=== PATIENT | male | born 1965 ===

== ENCOUNTER 2016-12-05 18:33 | Emergency (ER) | payer SELFPAY ==
[2016-12-05 18:43] VITALS: BP 129/80; PULSE 67; RESP 20; TEMP 98.5; O2SAT 99
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
--- NOTE | 2016-12-06 15:44 | RAD ---
Chest and left ribs five views History: Pain. Comparison: None available. Findings: Lung bolivar are clear. Heart size within normal limits. No evidence of pneumothorax. No evidence of acute displaced rib fracture. Question minimal cortical irregularity seen at the lateral aspect of the anterior left 7th rib best seen on series 6, image 1, nonspecific. Clinical correlation to site of pain. This was not well appreciated on the additional images. Impression: No evidence of pneumothorax. No evidence of acute displaced rib fracture. Question minimal cortical irregularity seen at the lateral aspect of the anterior left 7th rib best seen on series 6, image 1, nonspecific. Clinical correlation to site of pain. This was not well appreciated on the additional images.
== END 2016-12-05 21:38 | disposition home or self-care (01) ==
LOC: C.ER 18:33
DX: S20.212A Contusion of left front wall of thorax, initial encounter (principal); V18.0XXA Pedal cycle driver injured in noncollision transport accident in nontraffic accident, initial encounter; Y93.55 Activity, bike riding

== ENCOUNTER 2017-10-24 11:17 | Observation (INO) | payer OTHER ==
[2017-10-24] MEDS ORDERED: Sodium Chloride 0.9% 1,000 ML IV ONE (11:43)
[2017-10-24 12:19] LABS: BASO % 0.1 % (0.0-2.0); EOS % 0.6 % (0.0-4.0); HEMOGLOBIN 11.7 g/dL (12.0-18.0); LYMPH # 0.6 K/uL (1.0-4.3); LYMPH % 10.7 % (20.0-40.0); MEAN CELL VOLUME 91.3 fL (80.0-94.0); MEAN CORPUSCULAR HEMOGLOBIN 30.6 pg (27.0-31.0); MEAN CORPUSCULAR HGB CONC 33.5 g/dL (33.0-37.0); MEAN PLATELET VOLUME 9.2 fL (7.2-11.7); MONO # 0.5 K/uL (0.0-0.8); MONO % 9.7 % (0.0-10.0); NEUT # 4.1 K/uL (1.8-7.0); NEUT % 78.9 % (50.0-75.0); RBC 3.83 Mil/uL (4.40-5.90); RED CELL DISTRIBUTION WIDTH 13.6 % (11.5-14.5); WHITE BLOOD COUNT 5.2 K/uL (4.8-10.8)
[2017-10-24 12:57] LABS: ALB/GLOB RATIO 0.9 (1.0-2.1); ALBUMIN 2.2 g/dL (3.5-5.0); ALT/SGPT 29 U/L (21-72); AST/SGOT 21 U/L (17-59); BLOOD UREA NITROGEN 12 mg/dL (9-20); CALCIUM 5.6 mg/dl (8.6-10.4); GFR AFRICAN-AMERICAN > 60; GFR NON-AFRICAN AMERICAN > 60; LIPASE 68 U/L (23-300)
--- NOTE | 2017-10-24 13:11 | C.PDOC ---
History Of Present Illness Patient BIBA for evaluation of weakness, found to be hypotensive in the field ( 84/30). Patient states last night he had a large amount of watery diarrhea, and then had an episode again this morning. Patient then felt very lightheaded and almost passed out; daughter called 911. He denies chest pain, palpitations , SOB, fever, cough, vomiting, melena/hematochezia. Time Seen by Provider: 10/24/17 11:27 Chief Complaint (Nursing): GI Problem History Per: Patient, EMS History/Exam Limitations: no limitations Onset/Duration Of Symptoms: Hrs Past Medical History Reviewed: Historical Data, Nursing Documentation, Vital Signs Vital Signs: Last Vital Signs Temp 97 F L 10/24/17 11:29 Pulse 78 10/24/17 11:29 Resp 18 10/24/17 11:29 BP 109/67 10/24/17 11:29 Pulse Ox 94 L 10/24/17 11:29 - Medical History PMH: Hypercholesterolemia Family History: States: No Known Family Hx - Social History Hx Alcohol Use: No Hx Substance Use: No - Immunization History Hx Tetanus Toxoid Vaccination: No Hx Influenza Vaccination: No Hx Pneumococcal Vaccination: No Review Of Systems Except As Marked, All Systems Reviewed And Found Negative. Constitutional: Negative for: Fever, Chills Cardiovascular: Negative for: Chest Pain, Palpitations Respiratory: Negative for: Cough, Shortness of Breath Gastrointestinal: Positive for: Nausea, Abdominal Pain, Diarrhea. Negative for : Vomiting Skin: Negative for: Rash Neurological: Positive for: Dizziness. Negative for: Weakness, Numbness, Headache Physical Exam - Physical Exam Appears: Well, Non-toxic, Other (appears fatigued, comfortable) Skin: Normal Color, Warm, Dry Eye(s): bilateral: Normal Inspection, PERRL, EOMI Oral Mucosa: Moist Cardiovascular: Rhythm Regular Respiratory: Normal Breath Sounds, No Rales, No Rhonchi, No Wheezing Gastrointestinal/Abdominal: Normal Exam, Bowel Sounds, Soft, No Tenderness Extremity: Bilateral: Atraumatic, Normal Color And Temperature, Normal ROM Neurological/Psych: Oriented x3, Normal Speech, Normal Cognition, Normal Cranial Nerves, No Cerebellar Signs, Normal Motor, Normal Sensation ED Course And Treatment - Laboratory Results Result Diagrams: 10/24/17 12:09 10/24/17 12:09 ECG: Interpreted By Me, Viewed By Me (NSR 66 bpm, normal axis, no acute ST/T wave changes) ECG Interpretation: Normal O2 Sat by Pulse Oximetry: 94 (RA) Pulse Ox Interpretation: Normal Progress Note: Blood work, CXR, EKG ordered and reviewed. Disposition - Disposition
[2017-10-24] MEDS ORDERED: Potassium Chloride 20 mEq ER Tab PO STA (13:13)
[2017-10-24] MEDS ORDERED: Potassium Chloride 20 mEq ER Tab PO ONE (13:20)
[2017-10-24] MEDS ORDERED: Calcium Gluconate 4.65 MEQ in Dextrose 5% In Water 100 ML IV ONE ×2 (13:28→14:00)
[2017-10-24] MEDS ORDERED: Ergocalciferol 50,000 Intl Units Cap PO SCH (15:45)
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
[2017-10-24] MEDS: Lactated Ringer's 1,000 ML IV SCH ×2 (17:31→22:32)
[2017-10-24] MEDS: Ciprofloxacin 400mg/200ml D5W 400 MG/200 ML BAG IVPB SCH (18:36)
--- NOTE | 2017-10-24 19:23 | CT ---
EXAM: CT Abdomen and Pelvis Without Intravenous Contrast EXAM DATE/TIME: Exam ordered 10/24/2017 3:43 PM CLINICAL HISTORY: 52 years old, male; Pain; Abdominal pain TECHNIQUE: Axial computed tomography images of the abdomen and pelvis without intravenous contrast. All CT scans at this facility use one or more dose reduction techniques, viz.: automated exposure control; ma/kV adjustment per patient size (including targeted exams where dose is matched to indication; i.e. head); or iterative reconstruction technique. Coronal and sagittal reformatted images were created and reviewed. COMPARISON: No relevant prior studies available. FINDINGS: Lung bases: Unremarkable. No mass. No consolidation. Mediastinum: There is a small hiatal hernia. ABDOMEN: Liver: Unremarkable. Gallbladder and bile ducts: Unremarkable. No calcified stones. No ductal dilation. Pancreas: Unremarkable. No ductal dilation. Spleen: Unremarkable. No splenomegaly. Adrenals: Unremarkable. No mass. Kidneys and ureters: There is a nonobstructing 3 mm calculus in the upper pole of the left kidney. There is a nonobstructing 2 mm calculus in the lower pole of the right kidney. There is a nonobstructing 2 mm calculus in the upper pole of the right kidney. A less than 1 mm hyperdensity is seen in the extreme upper pole of the right kidney. . Stomach and bowel: Mildly dilated fluid filled colon and small bowel are noted throughout the abdomen. No mucosal thickening. PELVIS: Appendix: No findings to suggest acute appendicitis. Bladder: The bladder is distended measuring 12.7 x 8 by 10 cm for a volume of 530 cc. No stones. Reproductive: The prostate measures 3.2 x 4.4 by 4.7 cm. ABDOMEN and PELVIS: Intraperitoneal space: Unremarkable. No free air. No significant fluid collection. Bones/joints: No acute fracture. No dislocation. Soft tissues: There is an 8mm umbilical hernia containing fat. Vasculature: Unremarkable. No abdominal aortic aneurysm. Lymph nodes: Unremarkable. No enlarged lymph nodes. IMPRESSION: 1. Bilateral nonobstructing renal calculi. 2. Fluid filled mildly distended colon and small bowel consistent with ileus. 3. A small hiatal hernia.
[2017-10-24 19:29] LABS: BLOOD UREA NITROGEN 14 mg/dL (9-20); CALCIUM 9.2 mg/dl (8.6-10.4); GFR AFRICAN-AMERICAN > 60; GFR NON-AFRICAN AMERICAN > 60
[2017-10-24] MEDS: metroNIDAZOLE IV 500 mg/100 ml 500 MG/100 ML BAG IVPB SCH (21:55)
[2017-10-25] MEDS: Lactated Ringer's 1,000 ML IV SCH ×3 (04:10→18:25)
[2017-10-25] MEDS: Ciprofloxacin 400mg/200ml D5W 400 MG/200 ML BAG IVPB SCH ×2 (04:17→17:42)
[2017-10-25] MEDS: metroNIDAZOLE IV 500 mg/100 ml 500 MG/100 ML BAG IVPB SCH ×3 (06:17→21:41)
[2017-10-25 08:17] LABS: BASO % 0.2 % (0.0-2.0); EOS # 0.1 K/uL (0.0-0.7); EOS % 1.6 % (0.0-4.0); HEMOGLOBIN 13.2 g/dL (12.0-18.0); LYMPH # 0.8 K/uL (1.0-4.3); LYMPH % 21.2 % (20.0-40.0); MEAN CELL VOLUME 90.3 fL (80.0-94.0); MEAN CORPUSCULAR HEMOGLOBIN 30.9 pg (27.0-31.0); MEAN CORPUSCULAR HGB CONC 34.2 g/dL (33.0-37.0); MONO # 0.6 K/uL (0.0-0.8); MONO % 14.3 % (0.0-10.0); NEUT # 2.5 K/uL (1.8-7.0); NEUT % 62.7 % (50.0-75.0); NRBC % 0.1 % (0.0-2.0); RBC 4.28 Mil/uL (4.40-5.90); RED CELL DISTRIBUTION WIDTH 13.6 % (11.5-14.5)
[2017-10-25 08:52] LABS: ALB/GLOB RATIO 1.1 (1.0-2.1); ALBUMIN 3.2 g/dL (3.5-5.0); ALT/SGPT 30 U/L (21-72); AST/SGOT 29 U/L (17-59); BLOOD UREA NITROGEN 11 mg/dL (9-20); CALCIUM 8.5 mg/dl (8.6-10.4); GFR AFRICAN-AMERICAN > 60; GFR NON-AFRICAN AMERICAN > 60
--- NOTE | 2017-10-25 09:27 | CP.PCM.PN ---
Subjective - Date & Time of Evaluation Date of Evaluation: 10/25/17 Time of Evaluation: 09:28 - Subjective Subjective: PGy [address] Briggs Pt seen and examined this am. Patient is resting comfortably after eating a full breakfast. Patient is still complains of diarrhea. He had episode of loose stools last night and this morning. Patient denies having any CP, SOB, abd pain, N/V, F/C. Denies having any lightheadedness. Objective - Vital Signs/Intake and Output Vital Signs (last 24 hours): Temp Pulse Resp BP Pulse Ox 98.4 F 66 20 92/43 L 97 10/25/17 07:20 10/25/17 07:20 10/25/17 07:20 10/25/17 07:20 10/25/17 07:20 - Medications Medications: Current Medications Acetaminophen (Tylenol 325mg Tab) 650 mg PO Q6 PRN PRN Reason: Pain, moderate (4-7) Enoxaparin Sodium (Lovenox) 40 mg SC DAILY [facility] Ergocalciferol (Drisdol 50,000 Intl Units Cap) 1 cap PO Q7D [facility] Last Admin: 10/24/17 17:31 Dose: 1 cap Lactated Ringer's (Lactated Ringer's) 1,000 mls @ 150 mls/hr IV .Q6H40M [facility] Last Admin: 10/25/17 04:10 Dose: 150 mls/hr Ciprofloxacin (Cipro 400mg/200ml Dsw) 400 mg in 200 mls @ 133 mls/hr IVPB Q12H [facility] PRN Reason: Protocol Last Admin: 10/25/17 04:17 Dose: 133 mls/hr Metronidazole (Flagyl) 500 mg in 100 mls @ 100 mls/hr IVPB Q8 [facility] PRN Reason: Protocol Last Admin: 10/25/17 06:17 Dose: 100 mls/hr Ondansetron HCl (Zofran Inj) 4 mg IVP Q6 PRN PRN Reason: Nausea/Vomiting Pantoprazole Sodium (Protonix Ec Tab) 40 mg PO DAILY [facility] - Labs Labs: 10/25/17 08:04 10/25/17 08:04 - Constitutional Appears: Non-toxic, No Acute Distress - Head Exam Head Exam: ATRAUMATIC - ENT Exam ENT Exam: Mucous Membranes Moist - Respiratory Exam Respiratory Exam: Clear to Ausculation Bilateral. absent: Accessory Muscle Use , Rales, Rhonchi, Wheezes, Respiratory Distress - Cardiovascular Exam Cardiovascular Exam: REGULAR RHYTHM, +S1, +S2. absent: Gallop, Rubs, Murmur - GI/Abdominal Exam GI & Abdominal Exam: Soft, Normal Bowel Sounds. absent: Distended, Firm, Guarding, Rigid, Tenderness, Organomegaly - Neurological Exam Neurological Exam: Alert, Awake, Oriented x3 - Psychiatric Exam Psychiatric exam: Normal Affect, Normal Mood - Skin Skin Exam: Dry, Intact, Normal Color, Warm Assessment and Plan - Assessment and Plan (Free Text) Assessment: 52 year old male with no significant past medical history is admitted for diarrhea and hypocalcemia. Diarrhea - Will check stool studies including; stool cultures, ova and parasite, c diff stool antigen, fecal leukocytes. Pending - CT abd/pelvis showed nonobstructing renal calculi, ileus and small hiatal hernia. - LR 150 cc - Zofran prn for nausea - positive stool occult Hypocalcemia - Ca improved this am to 8.5 - TSH was 0.49 - PTH pending Vitamin D deficiency - pt started on vitamin d 50,000 units Low back pain - PT/OT requested - Tylenol prn for pain Prophylaxis - Protonix - lovenox - SCDs case discussed with attending, Dr. Briggs
[2017-10-25] MEDS: Enoxaparin 40 mg Syringe SC SCH (09:35)
[2017-10-25] MEDS: Pantoprazole 40 mg EC Tab PO SCH (09:35)
[2017-10-25 11:56] LABS: FECAL LEUKOCYTES NEGATIVE (NEGATIVE)
[2017-10-25 16:18] LABS: C DIFF TOXIN A B NEGATIVE (NEGATIVE)
[2017-10-26] MEDS: Lactated Ringer's 1,000 ML IV SCH ×2 (01:05→04:54)
[2017-10-26 06:39] LABS: BASO % 0.1 % (0.0-2.0); EOS % 0.9 % (0.0-4.0); HEMOGLOBIN 13.1 g/dL (12.0-18.0); LYMPH # 1.1 K/uL (1.0-4.3); LYMPH % 21.7 % (20.0-40.0); MEAN CELL VOLUME 88.8 fL (80.0-94.0); MEAN CORPUSCULAR HEMOGLOBIN 30.7 pg (27.0-31.0); MEAN CORPUSCULAR HGB CONC 34.5 g/dL (33.0-37.0); MEAN PLATELET VOLUME 9.1 fL (7.2-11.7); MONO # 0.9 K/uL (0.0-0.8); MONO % 16.3 % (0.0-10.0); NEUT # 3.2 K/uL (1.8-7.0); NRBC % 0.1 % (0.0-2.0); RBC 4.26 Mil/uL (4.40-5.90); RED CELL DISTRIBUTION WIDTH 13.2 % (11.5-14.5); WHITE BLOOD COUNT 5.2 K/uL (4.8-10.8)
[2017-10-26 06:55] LABS: ALB/GLOB RATIO 1.1 (1.0-2.1); ALBUMIN 3.2 g/dL (3.5-5.0); ALT/SGPT 38 U/L (21-72); AST/SGOT 32 U/L (17-59); BLOOD UREA NITROGEN 10 mg/dL (9-20); CALCIUM 8.4 mg/dl (8.6-10.4); GFR AFRICAN-AMERICAN > 60; GFR NON-AFRICAN AMERICAN > 60
[2017-10-26 09:20] VITALS: BP 104/71; RESP 18; TEMP 97.9; O2SAT 97
[2017-10-26] MEDS: Pantoprazole 40 mg EC Tab PO SCH (09:47)
[2017-10-26] MEDS: Enoxaparin 40 mg Syringe SC SCH (09:47)
[2017-10-26] MEDS: Magnesium Sulfate 1 gm in D5W 1 GM/100 ML BAG IVPB SCH ×2 (09:47→10:21)
[2017-10-26] MEDS ORDERED: Pneumococcal 23-Valent Vaccine IM ONE (10:00)
[2017-10-26 12:38] LABS: SQUAMOUS EPITHIAL < 1 /hpf (0-5); URINE BACTERIA OCC (<OCC); URINE BILIRUBIN NEGATIVE (NEGATIVE); URINE BLOOD NEGATIVE (NEGATIVE); URINE CLARITY Clear (Clear); URINE COLOR Straw (YELLOW); URINE GLUCOSE (UA) NORMAL (Normal); URINE LEUKOCYTE ESTERASE NEG Leu/uL (Negative); URINE PROTEIN NEGATIVE (NEGATIVE); URINE UROBILINOGEN NORMAL mg/dL (0.2-1.0)
[2017-10-26 13:17] VITALS: PULSE 62
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
== END 2017-10-26 15:49 | disposition home or self-care (01) ==
LOC: C.ER 11:17 → C.9E 13:27 → C.6T 14:33
PROVIDERS: ADMIT Internal Medicine; ATTEND Internal Medicine
DX: K52.9 Noninfective gastroenteritis and colitis, unspecified (principal); K56.7 Ileus, unspecified; K44.9 Diaphragmatic hernia without obstruction or gangrene; E87.6 Hypokalemia; E83.51 Hypocalcemia; E55.9 Vitamin D deficiency, unspecified; N20.0 Calculus of kidney
CPT/HCPCS: 36415; 74176; 80048; 80053; 81001; 82306; 82310; 83690; 83735; 84100; 84443; 85025; 87045; 87177; 87209; 87230; 89055; 90471; 90732; 97116; 97161; 99285; G0328; G0378; G8978; G8979; G8980; J0610; J0744; J1650; J3475; J7040; J7120

== ENCOUNTER 2017-11-18 14:26 | Emergency (ER) | payer OTHER ==
[2017-11-18 14:26] VITALS: BMI 25.2
[2017-11-18 14:32] VITALS: RESP 20; O2SAT 100
--- NOTE | 2017-11-18 14:42 | C.PDOC ---
History Of Present Illness 52 year old male is brought to the ED by ambulance for evaluation of dizziness which began earlier today. Patient was recently evaluated in this ED on 10/24/17 for complaints of diarrhea and was found to be hypotensive. He underwent admission and was discharged a couple days later. Patient states he had a follow -up colonscopy, and began feeling near-syncopal while getting his blood drawn earlier today. Patient reports history of similar episodes in the past with blood draws. He denies chest pain, palpitations or syncopal episode. Time Seen by Provider: 11/18/17 14:30 Chief Complaint (Nursing): Dizziness/Lightheaded History Per: Patient History/Exam Limitations: no limitations Onset/Duration Of Symptoms: Hrs Current Symptoms Are (Timing): Better Activity At Onset Of Symptoms: Sitting Seizure Or Post-ictal Symptoms: None Fall Associated With With Symptoms: No Additional History Per: Patient Past Medical History Reviewed: Historical Data, Nursing Documentation, Vital Signs Vital Signs: Last Vital Signs Temp 97.7 F 11/18/17 14:29 Pulse 55 L 11/18/17 14:29 Resp 20 11/18/17 14:29 BP 110/69 11/18/17 14:29 Pulse Ox 100 11/18/17 14:57 - Medical History PMH: Hypercholesterolemia Surgical History: No Surg Hx Family History: States: Unknown Family Hx - Social History Hx Alcohol Use: No Hx Substance Use: No - Immunization History Hx Tetanus Toxoid Vaccination: No Hx Influenza Vaccination: No Hx Pneumococcal Vaccination: No Review Of Systems Cardiovascular: Negative for: Chest Pain, Palpitations Neurological: Positive for: Dizziness, Other (near-syncope ) Physical Exam - Physical Exam Appears: Non-toxic, No Acute Distress Skin: Normal Color, Warm, Dry Head: Atraumatic, Normacephalic Eye(s): bilateral: Normal Inspection, PERRL, EOMI Ear(s): Bilateral: Normal Oral Mucosa: Moist Neck: Supple Chest: Symmetrical, No Deformity, No Tenderness Cardiovascular: Rhythm Regular, No Murmur Respiratory: Normal Breath Sounds, No Rales, No Rhonchi, No Wheezing Extremity: Normal ROM, Capillary Refill (less than 2 seconds ) Neurological/Psych: Oriented x3, Normal Speech, Normal Cognition Gait: Steady ED Course And Treatment - Laboratory Results Result Diagrams: 11/18/17 14:54 11/18/17 14:54 Lab Interpretation: Normal ECG: Interpreted By Me ECG Rhythm: Sinus Bradycardia ECG Interpretation: No Acute Changes (compared to 10/24/17) O2 Sat by Pulse Oximetry: 100 (on RA) Pulse Ox Interpretation: Normal Progress Note: Bloodwork and EKG ordered and reviewed. Orthostatic vitals normal. Reevaluation Time: 15:52 Reassessment Condition: Improved Disposition Counseled Patient/Family Regarding: Studies Performed, Diagnosis, Need For Followup - Disposition Disposition: HOME/ ROUTINE Disposition Time: 15:51 Condition: IMPROVED Instructions: Vasovagal Response Forms: [employer] (Malay) Print Language: OMANI - Clinical Impression Clinical Impression: Near syncope, Vasovagal response - Scribe Statement The provider has reviewed the documentation as recorded by the Scribe (Becky Nath) Provider Attestation: All medical record entries made by the Scribe were at my direction and personally dictated by me. I have reviewed the chart and agree that the record accurately reflects my personal performance of the history, physical exam, medical decision making, and the department course for this patient. I have also personally directed, reviewed, and agree with the discharge instructions and disposition.
[2017-11-18 15:02] LABS: BASO % 0.2 % (0.0-2.0); EOS # 0.1 K/uL (0.0-0.7); EOS % 0.9 % (0.0-4.0); HEMOGLOBIN 13.6 g/dL (12.0-18.0); LYMPH # 2.1 K/uL (1.0-4.3); LYMPH % 29.4 % (20.0-40.0); MEAN CELL VOLUME 90.9 fL (80.0-94.0); MEAN CORPUSCULAR HEMOGLOBIN 30.6 pg (27.0-31.0); MEAN CORPUSCULAR HGB CONC 33.7 g/dL (33.0-37.0); MEAN PLATELET VOLUME 9.1 fL (7.2-11.7); MONO # 0.7 K/uL (0.0-0.8); MONO % 9.7 % (0.0-10.0); NEUT # 4.2 K/uL (1.8-7.0); NEUT % 59.8 % (50.0-75.0); RBC 4.43 Mil/uL (4.40-5.90); RED CELL DISTRIBUTION WIDTH 13.5 % (11.5-14.5)
[2017-11-18 15:20] LABS: ALB/GLOB RATIO 1.2 (1.0-2.1); ALBUMIN 3.8 g/dL (3.5-5.0); ALT/SGPT 39 U/L (21-72); AST/SGOT 26 U/L (17-59); BLOOD UREA NITROGEN 14 mg/dL (9-20); GFR AFRICAN-AMERICAN > 60; GFR NON-AFRICAN AMERICAN > 60
[2017-11-18 16:11] VITALS: BP 124/73; PULSE 57; TEMP 98.3
--- NOTE | 2017-11-19 14:04 | CARD ---
APPROVED REPORT EKG Measurement Heart [id number] <Conclusion> Sinus bradycardia Otherwise normal ECG
== END 2017-11-18 15:59 | disposition home or self-care (01) ==
LOC: C.ER 14:26
DX: R55 Syncope and collapse (principal); E78.00 Pure hypercholesterolemia, unspecified